=== PATIENT | female | born 1960 | race Caucasian/White ===

== ENCOUNTER 2020-06-16 09:56 | Day surgery (SDC) | payer BC ==
[~2020-06-16 09:56] MED LIST: Lidocaine 1% PF 2 ML SDV INJECT SCH
[2020-06-16] MEDS: Polymyxin B/Trimethoprim 10 ML Bottle EYERT SCH ×4 (10:29→12:35)
[2020-06-16] MEDS: Brimonidine 0.2% Ophth Soln 5 ML Bottle EYERT SCH ×4 (10:35→12:35)
--- NOTE | 2020-06-16 10:38 | PCM.PREANE ---
Preanesthetic Assessment - Procedure Proposed Procedure: Right eye cataract extraction with IOL - Anesthesia/Transfusion/Family Hx Anesthesia History: No Prior Anesthesia Family History of Anesthesia Reaction: No Transfusion History: No Prior Transfusion(s) - Review of Systems General: No Symptoms Pulmonary: No Symptoms Cardiovascular: No Symptoms Gastrointestinal: No Symptoms Neurological: Numbness (in finger tips) Other: Reports: None - Physical Assessment NPO Status Date: 06/15/20 NPO Status Time: 00:00 Height: 1.6 m Weight: 54.431 kg ASA Class: 2 Mental Status: Alert & Oriented x3 Airway Class: Mallampati = 1 Dentition: Reports: Normal Dentition Thyro-Mental Finger Breadths: 3 Mouth Opening Finger Breadths: 3 ROM/Head Extension: Full Lungs: Clear to Auscultation, Normal Respiratory Effort Cardiovascular: Regular Rate, Regular Rhythm - Allergies Allergies/Adverse Reactions: Allergies Allergy/AdvReac Type Severity Reaction Status Date / Time No Known Allergies Allergy Verified 06/15/20 15:45 - Blood Blood Available: No Product(s) Available: None - Anesthesia Plan Pre-Op Medication Ordered: None - Acknowledgements Anesthesia Type Planned: MAC Pt an Appropriate Candidate for the Planned Anesthesia: Yes Alternatives and Risks of Anesthesia Discussed w Pt/Guardian: Yes Pt/Guardian Understands and Agrees with Anesthesia Plan: Yes PreAnesthesia Questionnaire - SUBSTANCE USE Smoking Status *Q: Never Smoker Tobacco Use Within Last Twelve Months: No Second Hand Smoke Exposure: No Days Per Week of Alcohol Use: 1 Number of Drinks Per Day: 1 Total Drinks Per Week: 1 Recreational Drug Use History: No - HOME MEDS Home Medications: Home Meds Calcium Carbonate [Calcium] 500 mg PO DAILY 06/15/20 [History] Cetirizine HCl [Zyrtec] 10 mg PO DAILY 06/15/20 [History] Docosahexaenoic Acid/Epa [Fish Oil Concentrate Softgel] 1 cap PO DAILY 06/15/20 [History] Multivitamin [Multivitamins] 1 cap PO DAILY 06/15/20 [History] Temazepam 30 mg PO BEDTIME 06/15/20 [History] - CURRENT (IN HOUSE) MEDS Current Meds: Current Medications Brimonidine Tartrate (Alphagan 0.2% Ophth Soln) 0 ml EYERT ASDIRECTED ROSA ELENA Stop: 06/16/20 18:00 Cefuroxime Sodium (Zinacef) 0 mg EYERT ASDIRECTED ROSA ELENA Stop: 06/16/20 18:00 Lidocaine HCl (Xylocaine-Mpf 1%) 0 ml INJECT ASDIRECTED ROSA ELENA Stop: 06/16/20 18:00 Phenylephrine HCl (Zachary-Synephrine 2.5% Ophth Soln) 0 ml EYERT ASDIRECTED ROSA ELENA Stop: 06/16/20 18:00 Pilocarpine HCl (Pilocar 4% Oph Soln) 0 ml EYERT ASDIRECTED ROSA ELENA Stop: 06/16/20 18:00 Polymyxin/Trimethoprim Sulfate (Polytrim Ophth Soln) 0 ml EYERT ASDIRECTED ROSA ELENA Stop: 06/16/20 18:00 Last Admin: 06/16/20 10:29 Dose: 1 drop Documented by: Tetracaine HCl (Tetracaine 0.5% Steri-Unit Kaia) 0 ml EYEBOTH ASDIRECTED ROSA ELENA Stop: 06/16/20 18:00 Tropicamide (Mydriacyl 1% Oph Soln) 0 ml EYERT ASDIRECTED ROSA ELENA Stop: 06/16/20 18:00
[2020-06-16] MEDS: Phenylephrine 2.5% Ophth Soln 2 ML Bot EYERT SCH ×5 (10:40→12:12)
[2020-06-16] MEDS: Tropicamide 1% Ophth Soln 15 ML Bottle EYERT SCH ×5 (10:46→11:34)
[2020-06-16] MEDS: Tetracaine HCl/PF 0.5% 4 ML Bottle EYEBOTH SCH ×2 (11:53→12:23)
--- NOTE | 2020-06-16 12:11 | PCM48HPAN ---
Post Anesthesia Note - EVALUATION WITHIN 48HRS OF ANESTHETIC Vital Signs in Normal Range: Yes Patient Participated in Evaluation: Yes Respiratory Function Stable: Yes Airway Patent: Yes Cardiovascular Function Stable: Yes Hydration Status Stable: Yes Pain Control Satisfactory: Yes Nausea and Vomiting Control Satisfactory: Yes Mental Status Recovered: Yes Vital Signs: Last Vital Signs Temp 36.7 C 06/16/20 10:20 Pulse 83 06/16/20 10:20 Resp 16 06/16/20 10:20 BP 129/87 06/16/20 10:20 Pulse Ox 98 06/16/20 10:20
[2020-06-16] MEDS: Cefuroxime 10 MG/ML SYRINGE EYERT SCH ×2 (12:24→12:34)
[2020-06-16] MEDS: Pilocarpine 4% Ophth Soln 15 ML Bot EYERT SCH ×2 (12:24→12:35)
== END 2020-06-16 12:45 | disposition home or self-care (01) ==
LOC: JD.SDS 09:56
PROVIDERS: ATTEND Ophthalmology
DX: H25.813 Combined forms of age-related cataract, bilateral (principal); H17.813 Minor opacity of cornea, bilateral; H16.103 Unspecified superficial keratitis, bilateral; H16.223 Keratoconjunctivitis sicca, not specified as Sjogren's, bilateral; H02.831 Dermatochalasis of right upper eyelid; H02.834 Dermatochalasis of left upper eyelid; Z98.890 Other specified postprocedural states
CPT/HCPCS: 66984; J0697; J2001; V2632

== ENCOUNTER 2020-09-15 09:52 | Day surgery (SDC) | payer BC ==
[~2020-09-15 09:52] MED LIST changes: +Cefuroxime 10 MG/ML SYRINGE EYERT SCH; +Pilocarpine 4% Ophth Soln 15 ML Bot EYERT SCH; +Polymyxin B/Trimethoprim 10 ML Bottle EYERT SCH
[2020-09-15] MEDS: Ofloxacin 0.3% Ophth Soln 5 ML Bottle EYERT SCH ×3 (09:59→11:45)
--- NOTE | 2020-09-15 10:01 | PCM.PREANE ---
Preanesthetic Assessment - Anesthesia/Transfusion/Family Hx Anesthesia History: Prior Anesthesia Without Reaction Family History of Anesthesia Reaction: No Transfusion History: No Prior Transfusion(s) - Review of Systems General: No Symptoms Pulmonary: No Symptoms Cardiovascular: No Symptoms Gastrointestinal: No Symptoms Neurological: No Symptoms Other: Reports: None - Physical Assessment NPO Status Date: 09/14/20 NPO Status Time: 21:30 Vital Signs: Last Vital Signs Temp 36.9 C 09/15/20 09:45 Pulse 86 09/15/20 09:45 Resp 16 09/15/20 09:45 BP 146/103 H 09/15/20 09:45 Pulse Ox 98 09/15/20 09:45 Weight: 54.431 kg ASA Class: 1 Mental Status: Alert & Oriented x3 Airway Class: Mallampati = 2 Dentition: Reports: Normal Dentition Thyro-Mental Finger Breadths: 3 Mouth Opening Finger Breadths: 3 ROM/Head Extension: Full Lungs: Clear to Auscultation, Normal Respiratory Effort Cardiovascular: Regular Rate, Regular Rhythm - Allergies Allergies/Adverse Reactions: Allergies Allergy/AdvReac Type Severity Reaction Status Date / Time Latex, Natural Rubber Allergy Hives Verified 09/14/20 15:18 Sulfa (Sulfonamide Allergy Hives Verified 09/14/20 15:18 Antibiotics) - Blood Blood Available: No Product(s) Available: None - Anesthesia Plan Pre-Op Medication Ordered: None - Acknowledgements Anesthesia Type Planned: MAC Pt an Appropriate Candidate for the Planned Anesthesia: Yes Alternatives and Risks of Anesthesia Discussed w Pt/Guardian: Yes Pt/Guardian Understands and Agrees with Anesthesia Plan: Yes PreAnesthesia Questionnaire - HOME MEDS Home Medications: Home Meds Calcium Carbonate [Calcium] 500 mg PO DAILY 06/15/20 [History] Cetirizine HCl [Zyrtec] 10 mg PO DAILY 06/15/20 [History] Docosahexaenoic Acid/Epa [Fish Oil Concentrate Softgel] 1 cap PO DAILY 06/15/20 [History] Multivitamin [Multivitamins] 1 cap PO DAILY 06/15/20 [History] Temazepam 30 mg PO BEDTIME 06/15/20 [History] - CURRENT (IN HOUSE) MEDS Current Meds: Current Medications Brimonidine Tartrate (Alphagan 0.2% Ophth Soln) 0 ml EYERT ASDIRECTED ROSA ELENA Stop: 09/15/20 18:00 Cefuroxime Sodium (Zinacef) 0 mg EYERT ASDIRECTED ROSA ELENA Stop: 09/15/20 18:00 Lidocaine HCl (Xylocaine-Mpf 1%) 0 ml INJECT ASDIRECTED ROSA ELENA Stop: 09/15/20 18:00 Ofloxacin (Ocuflox 0.3% Ophth Soln) 0 ml EYERT ASDIRECTED ROSA ELENA Stop: 09/15/20 18:00 Phenylephrine HCl (Zachary-Synephrine 2.5% Ophth Soln) 0 ml EYERT ASDIRECTED ROSA ELENA Stop: 09/15/20 18:00 Pilocarpine HCl (Pilocar 4% Ophth Soln) 0 ml EYERT ASDIRECTED ROSA ELENA Stop: 09/15/20 18:00 Tetracaine HCl (Tetracaine 0.5% Steri-Unit Kaia) 0 ml EYEBOTH ASDIRECTED ROSA ELENA Stop: 09/15/20 18:00 Tropicamide (Mydriacyl 1% Ophth Soln) 0 ml EYERT ASDIRECTED ROSA ELENA Stop: 09/15/20 18:00
[2020-09-15] MEDS: Brimonidine 0.2% Ophth Soln 5 ML Bottle EYERT SCH ×3 (10:05→11:45)
[2020-09-15] MEDS: Phenylephrine 2.5% Ophth Soln 2 ML Bot EYERT SCH ×5 (10:11→11:22)
[2020-09-15] MEDS: Tropicamide 1% Ophth Soln 15 ML Bottle EYERT SCH ×4 (10:16→11:05)
[2020-09-15] MEDS: Tetracaine HCl/PF 0.5% 4 ML Bottle EYEBOTH SCH ×4 (11:10→11:33)
--- NOTE | 2020-09-15 11:49 | PCM48HPAN ---
Post Anesthesia Note - EVALUATION WITHIN 48HRS OF ANESTHETIC Vital Signs in Normal Range: Yes Patient Participated in Evaluation: Yes Respiratory Function Stable: Yes Airway Patent: Yes Cardiovascular Function Stable: Yes Hydration Status Stable: Yes Pain Control Satisfactory: Yes Nausea and Vomiting Control Satisfactory: Yes Mental Status Recovered: Yes Vital Signs: Last Vital Signs Temp 36.9 C 09/15/20 09:45 Pulse 86 09/15/20 09:45 Resp 16 09/15/20 09:45 BP 146/103 H 09/15/20 09:45 Pulse Ox 98 09/15/20 09:45
== END 2020-09-15 11:57 | disposition home or self-care (01) ==
LOC: JD.SDS 09:52
PROVIDERS: ATTEND Ophthalmology
DX: H52.31 Anisometropia (principal); H53.141 Visual discomfort, right eye; Z98.890 Other specified postprocedural states; Z96.1 Presence of intraocular lens; H17.813 Minor opacity of cornea, bilateral; H16.223 Keratoconjunctivitis sicca, not specified as Sjogren's, bilateral; Z88.2 Allergy status to sulfonamides; Z91.040 Latex allergy status; Z79.899 Other long term (current) drug therapy
CPT/HCPCS: A9270-GY; C1780; J0697; J2001